=== PATIENT | female | born 1975 | race Caucasian/White ===

== ENCOUNTER 2024-01-23 20:49 | Inpatient (IN) | payer BC, SELFPAY ==
[2024-01-23] VITALS (8 sets, daily range): BP systolic 106–126; BP diastolic 61–92; PULSE 62–72
--- NOTE | 2024-01-23 09:54 | ED.GENMED ---
History of Present Illness
General
Chief Complaint: Change Level of Consciousness
Source: patient
Exam Limitations: none
Time Seen by Provider: 01/23/24 09:52
Nursing documentation reviewed up to this point in time: agreed with
Travel History
Have you had any contact with someone who has COVID-19?: No
Do you have any symptoms of coronavirus? Fever > 100 degrees, chills, cough, shortness of breath, sore throat, loss of taste or smell, muscle aches, or headache?: No
History of Present Illness
History of Present Illness:
48-year-old female with past medical history of asthma and anxiety presenting to the emergency department today with concerns of syncopal episode today as well as an episode of lightheadedness and change in speech yesterday. She claims that initial
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 She was told after that she was having garbled speech this
lasted for roughly a minute from the best she could tell. Any associated palpitations chest pain shortness of breath. This morning felt normal went to the bathroom and at some point the bathroom felt somewhat lightheaded and her next memory she is
on the floor she had her right side of her face. She is unsure of exactly how long she was on the floor as this was not witnessed however she is sure that it could not a bit longer than a few minutes based upon context and a phone call that she was
on. She denies any specific history of this at this point she feels back to normal
Past History
Past History
ED Past Surgical History: Cholecystectomy, and Other (labial precancer; leep; umbilical hernia repair)
Social History
Tobacco: Non-smoker
Alcohol: Former (3-4 beers)
Drug: None
Review of Systems
Review of Systems
Allergies reviewed?: Yes
All Other Systems: ROS reviewed and negative except as documented in HPI and ROS
Phy Exam
Physical Exam
Physical Exam:
GENERAL: Alert , in no apparent distress
EYE: pupils equal and reactive
NECK: Supple, no significant adenopathy.
ENT: Laceration to the central forehead the area just above the right eyebrow laceration to the right eyelid. Superficial in depth no foreign body seen o/p clr, mmm.
CARDIAC: Regular rate and rhythm .
LUNGS: Clear breath sounds bilaterally, no acute respiratory distress, no wheezes/rales/rhonchi
ABDOMEN: Soft, without focal tenderness, no r/g, no cvat
NEUROLOGICAL: Alert and oriented, no focal neuro deficits
SKIN: Warm and dry, skin intact.
MUSCULOSKELETAL: No edema, well perfused.
PSYCH: Normal and appropriate interaction.
Course
Orders/Labs/Results
Orders:
Orders
01/23/24 09:54
CT Cervical Spine W/o Iv Contr Urgent
Comment:
Reason For Exam: fall hit head, neck pain
CT Facial Bones W/o Iv Contras Urgent
Comment:
Reason For Exam: fal lhit face
Cardiac Monitoring- Treatment ONCE
Test Result ONCE
01/23/24 09:55
Electrocardiogram (*1) Stat
Reason for Study: Other
Other Reason for Exam: Headache
CT Head W/o Iv Contrast Urgent
Comment:
Reason For Exam: Fall hit head
EKG- Treatment ONCE
01/23/24 10:06
Complete Blood Count/With Diff Urgent
01/23/24 10:07
Comprehensive Metabolic Panel Urgent
HCG, Serum Qualitative Screen Urgent
PTT Urgent
Prothrombin Time Urgent
01/23/24 10:53
Lidocaine/Epinephrine/Tetracai [Let Topical Anesthetic Gel] 3 ml .ROUTE .STK-MED ONE
Lidocaine/Epinephrine/Tetracai [Let Topical Anesthetic Gel] 3 ml TOPICAL NOW STA
Abnormal Lab Results
01/23/24 01/23/24
10:06 10:07
WBC 12.3 H 10^3/uL
(4.8-10.8)
Absolute Neuts (auto) 10.6 H 10^3/uL
(1.4-6.5)
Absolute Lymphs (auto) 1.1 L 10^3/uL
(1.2-3.4)
Neutrophils % 86.1 H %
(42.2-75.2)
Lymphocytes % 9.1 L %
(20.5-51.1)
Glucose 109 H mg/dl
(70-99)
01/23/24 10:06
01/23/24 10:07
Vital Signs
Initial and Last Documented VS:
Initial Vital Signs
Temp Pulse Resp BP Pulse Ox
97.8 F 89 18 125/91 99
01/23/24 09:45 01/23/24 09:45 01/23/24 09:45 01/23/24 09:45 01/23/24 09:45
Last Documented Vital Signs
Temp Pulse Resp BP Pulse Ox
97.8 F 68 16 106/61 97
01/23/24 09:45 01/23/24 11:39 01/23/24 11:39 01/23/24 11:39 01/23/24 11:39
MDM/Problems Addressed
MDM/Problems Addressed:
48-year-old female presenting to the emergency department today after syncopal episode prior to arrival. She had a slight prodrome otherwise passed out and woke up on the floor. Had a episode of lightheadedness yesterday and also some garbled
speech while at work coworkers. She otherwise is back to her baseline at this point does not headache. Not taking blood thinners. No daily meds. Plan for CT scan of the face and head labs showing white count 12.3 otherwise labs unremarkable.
EKG normal. Scans of the head neck and face without emergent injuries. No emergent findings during his stay here. It is concerning that her episode of syncope had no prodrome concerning this plan to admit for cardiac evaluation.
*Critical Care Note
Total Time (30-74mins, 75-104mins- exclusive of procedures): Not Applicable
ED Attending Note
-
Portions of this chart may have been created with voice recognition software.� Occasional wrong word or��sound alike� substitutions may have occurred due to the inherent limitations of voice recognition software.
Discharge Plan
Departure
Patient Disposition: Admit
Date of Disposition: 01/23/24
Time of Disposition: 13:11
Admit to: Telemetry
Admit to doctor: Stewart
Presentation/result/management discussed w/ accepting MD/DO: Hospitalist
Patient with high blood pressure during this ER visit?: No
Condition: Good
Covid-19: Not Applicable
Discharge Problem:
Syncope
Prescriptions:
No Action
ibuprofen 200 mg Tablet
600 mg PO BIDPRN PRN (Reason: mild pain)
Referrals:
Luz Marina Guerra MD [Family Provider] -
Interventions
Interventions:
*Risk Screen - Suicide Last Done: 01/23/24 10:05
*General Assessment Last Done: 01/23/24 10:05
*Neglect/Abuse Screening Last Done: 01/23/24 10:05
ED- Fall Risk Assessment Last Done: 01/23/24 10:04
*ED COVID-19 Vaccine History Last Done: 01/23/24 10:22
ED- Cardiac Assessment Last Done: 01/23/24 10:02
ED- Neurological Assessment Last Done: 01/23/24 10:04
ED-Psychological Assessment Last Done: 01/23/24 10:02
ED- Pulmonary Assessment Last Done: 01/23/24 10:02
[2024-01-23 10:26] LABS: % Basophils 0.3 % (0-2); % Eosinophils 0.4 % (0-6); % Immature Granulocytes 0.3 % (0-0.5); % Lymphocytes 9.1 % (20.5-51.1); % Monocytes 3.8 % (1.7-9.3); % Neutrophils 86.1 % (42.2-75.2); Absolute Eosinophils 0.1 10^3/uL (0-0.7); Absolute Lymphocytes 1.1 10^3/uL (1.2-3.4); Absolute Monocytes 0.5 10^3/uL (0.1-0.6); Absolute Neutrophils 10.6 10^3/uL (1.4-6.5); Hematocrit 39.6 % (37.0-47.0); Hemoglobin 13.3 g/dL (12.0-16.0); Mean Corp Hgb Conc. 33.6 g/dL (33.0-37.0); Mean Corpuscular Hgb 28.7 pg (27.0-31.0); Mean Corpuscular Volume 85.5 fL (81.0-99.0); Mean Platelet Volume 9.6 fL (7.4-10.4); Nucleated Red Blood Cells % 0 %; Platelet Count 317 10^3/uL (130-400); Red Blood Cell Count 4.63 10^6/uL (4.20-5.40); Red Cell Dist. Width 12.6 % (11.5-14.5); White Blood Cell Count 12.3 10^3/uL (4.8-10.8)
[2024-01-23 10:41] LABS: INR 1.09
[2024-01-23 10:42] LABS: ALT (SGPT) 15 U/L (0-35); APTT 26.5 Sec (23.4-35.0); AST (SGOT) 23 U/L (14-36); Albumin 4.4 g/dl (3.5-5.0); Alkaline Phosphatase 76 U/L (38-126); Blood Urea Nitrogen 11 mg/dl (7-17); Carbon Dioxide 24 mmol/L (22-30); Chloride 106 mmol/L (98-107); Glucose 109 mg/dl (70-99); Sodium 135 mmol/L (135-145); Total Bilirubin 0.6 mg/dl (0.2-1.3); Total Protein 7.1 g/dl (6.3-8.2); eGFR > 60.00
[2024-01-23] MEDS: LET TOPICAL ANESTHETIC GEL 3 ML TOPICAL (10:53)
[2024-01-23 10:57] LABS: HCG, Serum Qualitative Screen Negative
[2024-01-23] MEDS: TYLENOL 1000 MG PO (19:25)
--- NOTE | 2024-01-23 20:21 | HPS.HSE ---
Family Physician
-
Family Physician: Luz Marina Guerra
Chief Complaint
-
syncope
History of Present Illness
48-year-old female past medical history of asthma, exercise-induced anxiety, presenting to the emergency room for concerns of syncopal episode as well as episode of lightheadedness and change in speech yesterday. Yesterday she was working at
[employer] when she suddenly felt cold and clammy and nauseous and dizzy and was taken to the nurse. She was noted to have garbled speech that lasted a minute as well as drooling from the corner of the right mouth. She was recommended to go to the
emergency room but decided not to be she was feeling better.
Today she was in the bathroom and anxious while in the bathroom she felt lightheaded and the next and she member she was on the floor hitting the right side of her face. When she got up she was bleeding from her forehead. She is not sure exactly
how long she was on the ground but denies any preceding nausea or clamminess like the day before. She feels better after come to the emergency room but continued to feel dizzy when she stood up. Has some pain of forehead. She thinks that she may
be dehydrated but she has not been eating and drinking well over the past week due to anxiety at work. She denies any previous episodes of dizziness or syncope in the past. Denies any history of seizures or cardiac history. Denies any
palpitations or chest pain.
Denies smoking or alcohol or any drug use.
Her mother had a cardiac valve problem.
Medical History
Past Medical History
Past Medical History: Reports Other (asthma, exercise-induced anxiety,)
Past Surgical History: Reports Other (Cholecystectomy, and Other (labial precancer; leep; umbilical hernia repair))
Social History
Tobacco: Non-smoker
Alcohol: None
Drug: None
Family History
Family History: Not pertinent
Allergies / Home Medications
Allergies reflects when Allergies were last updated in [facility].
Home Medications with original date entered in [facility]
Allergy/Medication List:
Allergies
Allergy/AdvReac Type Severity Reaction Status Date / Time
No Known Allergies Allergy Unverified 08/14/19 12:13
Home Medications
ibuprofen 200 mg tablet 600 mg PO BIDPRN PRN mild pain 01/23/24
Review of Systems
-
History Source: Patient
A 12 point ROS was completed and negative except as noted: Yes
Constitutional: Reports No Symptoms
EENT: Reports See HPI
Respiratory: Reports See HPI
Cardiac: Reports See HPI
Abdomen/GI: Reports No Symptoms
: Reports No Symptoms
Musculoskeletal: Reports No Symptoms
Skin: Reports No Symptoms
Neurological: Reports See HPI
Endocrine: Reports No Symptoms
Hematologic/Lymphatic: Reports No Symptoms
Psych: Reports No Symptoms
Physical Exam
Vital Signs
Vital Signs
Temp Pulse Resp BP Pulse Ox
97.8 F 77 10 112/77 98
01/23/24 09:45 01/23/24 19:15 01/23/24 19:15 01/23/24 16:52 01/23/24 16:52
Physical Exam
General: Well Developed, Well Nourished and No Apparent Distress
HEENT: NormoCephalic, Moist mucous membranes and Atraumatic
Respiratory: Clear
Cardiac: S1/S2 and Regular Rhythm; No Murmur or Rub
GI: Soft, Non Tender, Non Distended and Normal Bowel Sounds; No Organomegaly
Rectal: Deferred by Provider
Musculoskeletal: No Clubbing, No Cyanosis and No Edema
Skin: No Rash
Neuro: Nonfocal/grossly intact
Laboratory Results
-
01/23/24 10:06
01/23/24 10:07
Laboratory Results
PT 14.0 Sec (11.4-14.6) 01/23/24 10:07
INR 1.09 01/23/24 10:07
APTT 26.5 Sec (23.4-35.0) 01/23/24 10:07
Total Bilirubin 0.6 mg/dl (0.2-1.3) 01/23/24 10:07
AST 23 U/L (14-36) 01/23/24 10:07
ALT 15 U/L (0-35) 01/23/24 10:07
Alkaline Phosphatase 76 U/L (38-126) 01/23/24 10:07
Data Reviewed
-
Lab Data: Labs Reviewed by me
Old Records: Reviewed
Impression/Plan
-
IMPRESSION:
PLAN:
# Syncopal episode suspect vagal episode/orthostatic hypotension, but possibly cardiac etiology, seizure unlikely
-First episode yesterday seems more like vagal episode, however syncope today more concerning for cardiac etiology
-EKG shows sinus bradycardia with sinus arrhythmia
-Orthostatic vitals normal
-Check troponin
-Check echocardiogram
#Superficial Laceration of central forehead
-CT head shows no intracranial abnormality
-CT facial bones shows no fracture
-CT cervical spine no abnormality
-Tylenol, ibuprofen for pain
Anxiety
Exercise-induced asthma
Full code
DVT prophylaxis�SCDs
Regular diet
[2024-01-23 21:34] LABS: Troponin I < 0.012 ng/ml
[2024-01-23] MEDS: MOTRIN 400 MG PO (22:14)
[2024-01-23] MEDS: NSS 1000 IV (22:14)
[2024-01-24] VITALS (11 sets, daily range): BP systolic 92–130; BP diastolic 59–99; PULSE 70–78; BMI 23.8
[2024-01-24 05:30] LABS: % Basophils 0.7 % (0-2); % Eosinophils 1.5 % (0-6); % Immature Granulocytes 0.1 % (0-0.5); % Lymphocytes 29.8 % (20.5-51.1); % Monocytes 7.5 % (1.7-9.3); % Neutrophils 60.4 % (42.2-75.2); Absolute Basophils 0.1 10^3/uL (0-0.2); Absolute Eosinophils 0.1 10^3/uL (0-0.7); Absolute Lymphocytes 2.2 10^3/uL (1.2-3.4); Absolute Monocytes 0.6 10^3/uL (0.1-0.6); Absolute Neutrophils 4.5 10^3/uL (1.4-6.5); Hematocrit 38.5 % (37.0-47.0); Hemoglobin 12.6 g/dL (12.0-16.0); Mean Corp Hgb Conc. 32.7 g/dL (33.0-37.0); Mean Corpuscular Hgb 28.4 pg (27.0-31.0); Mean Corpuscular Volume 86.9 fL (81.0-99.0); Mean Platelet Volume 9.7 fL (7.4-10.4); Nucleated Red Blood Cells % 0 %; Platelet Count 260 10^3/uL (130-400); Red Blood Cell Count 4.43 10^6/uL (4.20-5.40); Red Cell Dist. Width 12.6 % (11.5-14.5); White Blood Cell Count 7.4 10^3/uL (4.8-10.8)
[2024-01-24 05:52] LABS: ALT (SGPT) 13 U/L (0-35); AST (SGOT) 19 U/L (14-36); Albumin 3.7 g/dl (3.5-5.0); Alkaline Phosphatase 62 U/L (38-126); Blood Urea Nitrogen 11 mg/dl (7-17); Carbon Dioxide 25 mmol/L (22-30); Chloride 106 mmol/L (98-107); Estimated Creatinine Clearance 81 ml/min; Glucose 112 mg/dl (70-99); Potassium 4.3 mmol/L (3.5-5.1); Sodium 138 mmol/L (135-145); Total Bilirubin 0.5 mg/dl (0.2-1.3); Total Protein 6.3 g/dl (6.3-8.2); eGFR > 60.00
--- NOTE | 2024-01-24 07:51 | W.PN.HOSP.TC ---
Addendum entered and electronically signed by Ayana Nogueira MD 01/24/24 09:18:
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
Neuro CS placed.
Addendum entered and electronically signed by Ayana Nogueira MD 01/24/24 08:15:
Also check COVID, TSH reflex FT4
BP noted to be low overnight (could be physiological during sleep), monitor BP
Original Note:
Today's Communication/Plan
-
see A/P
Assessment / Plan
Assessment / Plan
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
nauseous and dizzy and was taken to the nurse.� She was noted to have garbled speech that lasted a minute as well as drooling from the corner of the right mouth.� She was recommended to go to the emergency room but decided not to as she was feeling
better.
On DOA, she was in the bathroom and felt anxious while in the bathroom. She felt lightheaded and passed out on the floor hitting the right side of her face.� When she got up she was bleeding from her forehead.� She is not sure exactly how long she
was on the ground for but denies any preceding nausea or clamminess like the day before.�
She felt better in the ED but continued to feel dizzy when she stood up. Has some pain of forehead.�She thinks that she may have been dehydrated as she had not been eating and drinking well over the past week due to anxiety at work.� She denied any
previous episodes of dizziness or syncope in the past.� Denies any history of seizures or cardiac history.� Denies any palpitations or chest pain.
Denies smoking or alcohol or any drug use.
Her mother had a cardiac valve problem.
A/P:
# Syncopal episodes suspect vasovagal, but need to r/o cardiac; seizure unlikely
EKG shows sinus bradycardia
Orthostatic vitals from admission was normal, can repeat orthostatic VS today
troponin negative
Check echocardiogram
test negative
# Superficial Laceration of central forehead
CT head shows no intracranial abnormality
CT facial bones shows no fracture
CT cervical spine no abnormality
Cont Tylenol, ibuprofen for pain
PT OT Eval
# Anxiety
Pt admits to be under stress lately
informed to follow up with counsellor/psychiatrist/psychologist outpt for anxiety management training
# Exercise-induced asthma
stable
Full code
DVT prophylaxis�SCDs
Regular diet
Anticipated Discharge: Within 24 hours
Subjective/Interval History
-
Date of Service: January 24, 2024
Objective Data
-
Labs:
Laboratory Results
01/24/24
05:22
WBC 7.4
Hgb 12.6
Hct 38.5
Plt Count 260
Sodium 138
Potassium 4.3
Chloride 106
Carbon Dioxide 25
BUN 11
Creatinine 0.7
Glucose 112 H
Calcium 9.0
Total Bilirubin 0.5
AST 19
ALT 13
Alkaline Phosphatase 62
Vital Signs:
Vital Signs
Temp Pulse Resp BP Pulse Ox
36.9 C 65 18 92/59 99
01/24/24 07:00 01/24/24 07:00 01/24/24 07:00 01/24/24 04:01 01/24/24 07:00
I&O
01/23/24 01/24/24 01/25/24
06:59 06:59 06:59
Intake Total 960 / 960
Balance 960 / 960
Review of Systems
-
All other systems: Reviewed and negative
Physical Exam
-
General: Well Developed, Well Nourished, No Apparent Distress, Comfortable and Conversant; Negative Respiratory Distress
HEENT: Normocephalic, Atraumatic, Nose Appears Normal and Ears Appear Normal; Negative Oxygen
Respiratory: Clear to Auscultation and Non Labored Respirations; Negative Accessory Resp Muscle Use
Cardiac: Regular Rhythm and S1/S2
GI: Soft, Nontender, Nondistended and Normal Bowel Sounds
Skin: Warm, Dry and Other (R facial bruise, bruising over the R eye)
Neuro: Awake, Alert, Oriented, AO x 3 and Nonfocal/Grossly Intact
Psych: Calm and Intact Judgement/Insight
Data Reviewed
-
CT Scan: Report Reviewed by me
Labs: Labs Reviewed by me
[2024-01-24] MEDS: MOTRIN 400 MG PO (09:05)
[2024-01-24 09:17] LABS: TSH Reflex To Free T4 2.81 uIU/ml (0.47-4.68)
--- NOTE | 2024-01-24 09:47 | CON.NEURO ---
Consultation
Order
Date of Consultation: 01/24/24
Reason for Consult: Syncope
CC: none
HPI: This is a 48-year-old left-handed woman who presented to [facility] on January 23, 2024 with a spell.
Ms. Robertson recalls feeling clammy and was told to have unresponsive episode of unknown duration witnessed by her coworkers on 01/22/2024. 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
bathroom floor. Her boyfriend was in the house however has not heard her falling. Patient recalls feeling urge to bowel movement after she was cleaning blood from her face before seeking medical attention. She developed a mild nonpositional
headache following the fall with head trauma. It is unknown how long she was on the floor. No reports of palpitations, chest pain, tongue injury/urinary incontinence,recently started to discontinued medications no history of seizures. Following
the spell patient has had intermittent dizziness as well as increased processing time headache has resolved with 400 mg of ibuprofen that she has received twice since admission.
ER VS: 125/91-92/59, 89, afebrile
PDMP:none
Labs: Glucose�109, WBCs�12.3, normal sodium, creatinine, hemoglobin
EKG: Sinus bradycardia at 57, sinus arrhythmia, QTc�399.
CT head-no evidence of acute intracranial abnormality, predominantly bifrontal atrophy, advanced for patient's chronological age
PMH: asthma, vulvular CA?, EtOH addiction in remission
PSH: LEEP, vulvectomy, , cholecystectomy, umbilical hernia repair
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
FH: Mother�inflammatory arthropathy, hypothyroidism
All:NKDA
ROS:Constitutional: Negative. Negative for chills, fever and unexpected weight change.
HENT: Negative for ear pain, hearing loss, tinnitus and trouble swallowing.
Eyes: Negative. Negative for photophobia, pain and visual disturbance.
Respiratory: Negative for cough, choking and shortness of breath.
Cardiovascular: Negative for chest pain, palpitations and leg swelling.
Gastrointestinal: Negative for abdominal pain and vomiting.
Endocrine: Negative. Negative for cold intolerance.
Genitourinary: Negative for dysuria, flank pain and urgency.
Musculoskeletal: Negative for back pain, gait problem, neck pain and neck stiffness.
Skin: Negative for rash.
Allergic/Immunologic: Negative. Negative for immunocompromised state.
Neurological: Positive for occasional headache, intermittent dizziness
Psychiatric/Behavioral: Negative for behavioral problems, confusion and hallucinations.
General: Well developed. In no acute distress.
Cardio: Regular rate and rhythm without murmur. Extremities are without cyanosis or edema.
Neuro:
Mental Status: Alert, oriented to person, place, and date. Increased processing time. Normal attention and recall. Good fund of knowledge. Follows complex requests across the midline. Comprehension, naming, and repetition intact. Immediate and
delayed recall 3/3.
Cranial Nerves: . Pupils are equally round and reactive to light. EOMs full. Visual melton full to confrontation. No ptosis. No nystagmus. V1-V3 intact to light touch and pinprick bilaterally, symmetric. Face symmetric. Normal hearing AU.
The palate elevated well. SCMs and traps 5/5. Tongue midline. No dysarthria.
Motor: Normal bulk and tone. No pronator or arm drift. Strength 5/5 throughout. No clonus.
Reflexes: 1+ throughout the upper extremities and knees. Plantar responses flexor bilaterally.
Sensory: Normal proprioception in the toes
Coordination: No dysmetria or tremor.
Gait: deferred
Assessment and Plan:
I. Probable syncope. Neuroexam is nonfocal
II. Multifactorial encephalopathy (posttraumatic, toxic)
III. History of EtOH addiction in remission.
-clinical research monitor
-Please obtain TSH, vit b12, CPK, magnesium, urine tox, urinalysis
-Cardiology consult
-Routine EEG
I personally reviewed all radiology and labs along with past medical records pertinent to current medical problems. Total time spent in patient care is 60 minutes.
Thank you for allowing us to participate in the care of this patient. We will continue to follow. Please do not hesitate to contact us with any questions or concerns.
Subjective/Objective
Subjective Data
Date of Service: January 24, 2024
Objective Data
Vital Signs
Temp Pulse Resp BP Pulse Ox
36.9 C 65 18 92/59 99
01/24/24 07:00 01/24/24 07:00 01/24/24 07:00 01/24/24 04:01 01/24/24 07:00
Lab Results
01/24/24 05:22
01/24/24 05:22
PT 14.0 Sec (11.4-14.6) 01/23/24 10:07
INR 1.09 01/23/24 10:07
APTT 26.5 Sec (23.4-35.0) 01/23/24 10:07
Sodium 138 mmol/L (135-145) 01/24/24 05:22
Potassium 4.3 mmol/L (3.5-5.1) 01/24/24 05:22
BUN 11 mg/dl (7-17) 01/24/24 05:22
Glucose 112 mg/dl (70-99) H 01/24/24 05:22
Calcium 9.0 mg/dl (8.4-10.2) 01/24/24 05:22
Patient Allergies
No Known Allergies Allergy (Unverified 08/14/19 12:13)
Medications
-
Active Medications
Generic Name Dose Route Start Last Admin
Trade Name Freq PRN Reason Stop Dose Admin
Acetaminophen 650 mg 01/23/24 21:18
Acetaminophen 325 Mg Tablet PO 02/20/24 21:17
Q4HPRN PRN
mild pain/[place]/temp> 100.4F
Sodium Chloride 1,000 mls @ 80 mls/hr 01/23/24 21:18 01/23/24 22:14
Nss IV 1,000 mls
.[id number] NAIMA Administration
Ibuprofen 400 mg 01/23/24 21:18 01/24/24 09:05
Ibuprofen 400 Mg Tablet PO 02/20/24 21:17 400 mg
Q6HPRN PRN Administration
mild pain
Sodium Chloride 0 flush 01/23/24 22:00
Sodium Chloride 0.9% (Flush) Syringe IV 02/20/24 21:59
PER PROTOCOL NAIMA
Home Medications
Medication Instructions Recorded
ibuprofen 200 mg tablet 600 mg PO BIDPRN PRN mild pain 01/23/24
--- NOTE | 2024-01-24 09:59 | CM ---
Patient seen at bedside. Patient states that she lives with her boyfriend and son aged 14. Patient stated that she lives in a 2 story home with no DME. Patient PCP is Dr. Guerra and she uses the [facility] on [address] in [place]. Patient is
working and independent of ADL's and IADL's. Patient plan is to return home with no needs. CM will continue to follow for discharge planning needs.
Plan; home with no needs. watch for VN needs
[2024-01-24 10:47] LABS: COVID-19 Antigen Negative (Negative)
[2024-01-24] MEDS: TYLENOL 650 MG PO (11:08)
[2024-01-24] MEDS: NSS 1000 IV (11:09)
--- NOTE | 2024-01-24 15:54 | CHAP ---
Emotional and spiritual support provided as requested. Prayer blanket given. Will follow as able.
--- NOTE | 2024-01-24 16:28 | EEGC.RPT ---
Continuous EEG Report
Recording
Start Date of Data Reviewed: 01/24/24
End Date of Data Reviewed: 01/24/24
Done with Video Recording: Yes
Study Sequence: Initiation of Study
Electrocardiogram: Unremarkable
Report
TECHNICAL REMARKS: This is a technically satisfactory eighteen channel record employing 21 disc electrodes applied according to a measured international 10-20 electrode placement system. There were no significant technical difficulties. The study
was done on a [employer] System.
CLINICAL HISTORY: This is a 48-year-old woman with a spell. This study was requested to look for epileptiform abnormalities.
MEDICATION: no AED
STUDY DURATION: 28 min, 31 secs
REPORT: At the onset of the EEG, the patient is awake. The background activity consists of 11-11.5 Hz, persistent, posteriorly dominant, moderate amplitude, symmetric and rhythmic activity that is reactive to eye-opening. Anteriorly, it consists of
a mixture of low voltage indeterminate activity and 20-25 Hz, persistent, low amplitude, symmetric and rhythmic activity. Stepwise intermittent photic stimulation (1-31 Hz) does not induce any abnormalities. Hyperventilation was not performed.
Drowsiness is characterized by low amplitude mixed frequency activity, decreased eye blinking, and muscle artifact.
IMPRESSION: This is a normal awake and drowsy EEG. There is no evidence of focal slowing or epileptiform activity. A normal EEG does not rule out epilepsy. If the clinical picture warrants, a sleep-deprived awake and sleep record may be helpful.
[2024-01-24 20:28] LABS: Amphetamines Negative (Negative); Barbiturates Negative (Negative); Benzodiazepines Negative (Negative); Buprenorphine Negative (Negative); Cocaine Negative (Negative); Marijuana Positive (Negative); Methadone Negative (Negative); Methamphetamines Negative (Negative); Opiates Negative (Negative); Phencyclidine Negative (Negative); Tricyclic Antidepressants Negative (Negative)
[2024-01-25] MEDS: NSS 1000 IV (01:53)
[2024-01-25 03:09] VITALS: BP 105/69
[2024-01-25 07:00] VITALS: BP 122/76
[2024-01-25] MEDS: MOTRIN 400 MG PO (08:57)
[2024-01-25 09:45] VITALS: BP 117/74; BP 127/96; BP 132/89; PULSE 73; PULSE 79
[2024-01-25 11:00] VITALS: BP 124/88
--- NOTE | 2024-01-25 11:17 | W.PN.HOSP.TC ---
Addendum entered and electronically signed by Ayana Nogueira MD 01/25/24 13:53:
Total DC time 35 minutes
Original Note:
Today's Communication/Plan
-
DC home today
Assessment / Plan
Assessment / Plan
48-year-old female past medical history of asthma, exercise-induced anxiety, presented with syncopal episode as well as episode of lightheadedness and change in speech.�The day [employer], she was working at [employer] when she suddenly felt cold, clammy,
nauseous and dizzy and was taken to the nurse.� She was noted to have garbled speech that lasted a minute as well as drooling from the corner of the right mouth.� She was recommended to go to the emergency room but decided not to as she was feeling
better.
On DOA, she was in the bathroom and felt anxious while in the bathroom. She felt lightheaded and passed out on the floor hitting the right side of her face.� When she got up she was bleeding from her forehead.� She is not sure exactly how long she
was on the ground for but denies any preceding nausea or clamminess like the day before.�
She felt better in the ED but continued to feel dizzy when she stood up. Has some pain of forehead.�She thinks that she may have been dehydrated as she had not been eating and drinking well over the past week due to anxiety at work.� She denied any
previous episodes of dizziness or syncope in the past.� Denies any history of seizures or cardiac history.� Denies any palpitations or chest pain.
Denies smoking or alcohol or any drug use.
Her mother had a cardiac valve problem.
A/P:
# Syncopal episodes suspect vasovagal
EKG shows sinus bradycardia
Orthostatic vitals WNL
troponin negative
TSH WNL at 2.81
echo unrevealing: EF 60 to 65%. Normal right ventricular size and systolic function. No significant valvular abnormalities. No significant pericardial effusion.
EEG without seizure
test negative
Of note, UDS positive for marijuana
Neuro was consulted per family request, appreciate input
# Superficial Laceration of central forehead
CT head shows no intracranial abnormality
CT facial bones shows no fracture
CT cervical spine no abnormality
Cont Tylenol, ibuprofen for pain
PT OT : no skilled needed
# Anxiety
Pt admits to be under stress lately
informed to follow up with counsellor/psychiatrist/psychologist outpt for anxiety management training
# Exercise-induced asthma
stable
Full code
DVT prophylaxis�SCDs
Regular diet
DW mother in person
Anticipated Discharge: Today
Subjective/Interval History
-
Date of Service: January 25, 2024
Objective Data
-
Vital Signs:
Vital Signs
Temp Pulse Resp BP Pulse Ox
36.6 C 60 16 122/76 99
01/25/24 07:00 01/25/24 07:00 01/25/24 07:00 01/25/24 07:00 01/25/24 07:00
I&O
01/24/24 01/25/24 01/26/24
06:59 06:59 06:59
Intake Total 960 / 960 1440 / 1440
Balance 960 / 960 1440 / 1440
Review of Systems
-
All other systems: Reviewed and negative
Physical Exam
-
General: Well Developed, Well Nourished, No Apparent Distress, Comfortable and Conversant; Negative Respiratory Distress
HEENT: Normocephalic, Atraumatic, Nose Appears Normal and Ears Appear Normal; Negative Oxygen
Respiratory: Clear to Auscultation and Non Labored Respirations; Negative Accessory Resp Muscle Use
Cardiac: Regular Rhythm and S1/S2
GI: Soft, Nontender, Nondistended and Normal Bowel Sounds
Skin: Warm, Dry and Other (R facial bruise, bruising over the R eye)
Neuro: Awake, Alert, Oriented, AO x 3 and Nonfocal/Grossly Intact
Psych: Calm and Intact Judgement/Insight
Data Reviewed
-
CT Scan: Report Reviewed by me
Labs: Labs Reviewed by me
--- NOTE | 2024-01-25 12:18 | CM ---
CM following for d/c planning
Pt for d/c today
Spoke with pt - will have ride home
Plan - home no needs
--- NOTE | 2024-01-25 13:43 | W.DCSUMMARY ---
Discharge Summary
Discharge Data
Date of Admission: 01/23/24
Date of Discharge: 01/25/24
-
Pending Results: No
Hospital Course
Principal Diagnosis:
Syncope likely vasovagal, resulting in superficial laceration of central forehead and right periorbital bruising
Chronic Diagnoses:�
Anxiety
Exercise-induced asthma
Consultations:�
Neurology
Procedures:�
None
Clinical course:�
This is a 48-year-old female with past medical history as stated above, who presented with syncope at home- the first time at work, the second time in the bathroom at home.
She admitted to be experiencing increasing stress at work.
Problem 1:
Syncope likely vasovagal, resulting in superficial laceration of central forehead and right periorbital bruising.
Her syncope workup in the hospital was unrevealing.
Her EKG showed sinus bradycardia, her Orthostatic vitals were within normal limits, her troponin was negative, and her TSH was within normal limit at 2.81.
Her echo was unrevealing: EF 60 to 65%. Normal right ventricular size and systolic function. No significant valvular abnormalities. No significant pericardial effusion.
Her EEG was without seizure.
Her test was negative.
Of note, her UDS was positive for marijuana.
Problem 2:
Superficial Laceration of forehead and right periorbital bruising from syncope.
Her CT head showed no intracranial abnormality.
Her CT facial bones showed no fracture.
Her CT cervical spine showed no abnormality.
She does not require [facility] facility per PT OT recommendation.
As for the rest of her medical problems, they were stable during her hospital stay.
Discharge Plan
-
Patient Disposition: Home (Routine Discharge)
Discharge Diagnosis/Procedures: Vasovagal syncope
Condition: Good
Diet: As tolerated
Activity: As tolerated
Driving Restrictions: As prior to admission
Referrals:
Luz Marina Guerra MD [Family Provider] - in less than 1 week
Prescriptions:
Continued
ibuprofen 200 mg Tablet
600 mg PO BIDPRN PRN (Reason: mild pain)
No Action
albuterol sulfate 90 mcg/actuation Hfa Aerosol Inhaler
2 puff INHALATION PRN PRN (Reason: exercise induced asthma/SOB/Wheezing )
Discharge Orders:
Discharge Patient (As Directed); Ordered 01/25/24
Ordered By: Ayana Nogueira
== END 2024-01-25 14:07 | disposition home or self-care (01) | DRG 312 ==
LOC: 3 WEST ACU 20:49
PROVIDERS: Physician Assistant; ADMITTING PHYSICIAN Hospitalist; ATTENDING PHYSICIAN Internal Medicine; CONSULT PHYSICIAN Psychiatry & Neurology Neurology; EMERGENCY PHYSICIAN Emergency Medicine; FAMILY PHYSICIAN Internal Medicine
DX: R55 Syncope and collapse (principal); G93.40 Encephalopathy, unspecified; F41.9 Anxiety disorder, unspecified; M54.2 Cervicalgia; R00.1 Bradycardia, unspecified; J45.990 Exercise induced bronchospasm; S01.81XA Laceration without foreign body of other part of head, initial encounter; W18.39XA Other fall on same level, initial encounter; Y93.89 Activity, other specified; Y92.002 Bathroom of unspecified non-institutional (private) residence as the place of occurrence of the external cause; F10.21 Alcohol dependence, in remission; Z11.52 Encounter for screening for COVID-19
CPT/HCPCS: 70450; 70486; 72125; 80053; 80306; 83735; 84443; 84484; 84703; 85025; 85610; 85730; 87811; 93005; 93306; 95816; 97162; 99285

== ENCOUNTER → 2024-03-02 10:02 | Outpatient (REF) | payer BC, SELFPAY | LOC: WDC 10:02 | PROVIDERS: ATTENDING PHYSICIAN Nurse Practitioner Family; FAMILY PHYSICIAN Internal Medicine | DX: Z12.31 Encounter for screening mammogram for malignant neoplasm of breast (principal) | CPT/HCPCS: 77063; 77067 ==

== ENCOUNTER → 2025-04-10 17:58 | Outpatient (REF) | payer BC, SELFPAY | LOC: WDC 17:58 | PROVIDERS: ATTENDING PHYSICIAN Nurse Practitioner Family; FAMILY PHYSICIAN Internal Medicine | DX: Z12.31 Encounter for screening mammogram for malignant neoplasm of breast (principal) | CPT/HCPCS: 77063; 77067 ==